=== PATIENT | male | born 1965 | race Caucasian/White ===

== ENCOUNTER 2017-06-10 12:08 | Inpatient (IN) | payer SELFPAY ==
[~2017-06-10] VITALS: Ht 180.3 cm; Wt 72.6 kg
--- NOTE | 2017-06-10 12:08 | NUR ---
Patient LYNNAislinn CINDY, triaged by RN. Waiting for an available bed.
--- NOTE | 2017-06-10 12:20 | NUR ---
Patient transferred to bed 3 for further care. RN evaluating patient at bedside.
[2017-06-10 12:24] VITALS: BP 110/78
--- NOTE | 2017-06-10 12:32 | NUR ---
Security at bedside.
--- NOTE | 2017-06-10 12:41 | NUR ---
Dr. Woods evaluating patient at bedside.
--- NOTE | 2017-06-10 13:24 | NUR ---
Lunch served, assisted with setup. Safety precautions enforced, close observation enforced.
[2017-06-10 13:34] LABS: ANION GAP 15.4 (8-16); CARBON DIOXIDE 24.6 mmol/L (21-32); CHLORIDE 107 mmol/L (98-107); CREATININE 0.7 mg/dL (0.7-1.3); GFR ARICAN-AMERICAN 154 mL/min (>90); GLUCOSE 94 mg/dL (74-106); SODIUM SERUM 144 mmol/L (136-145); UREA NITROGEN, BLOOD 12 mg/dL (7-18)
[2017-06-10 13:35] LABS: BASOPHILS # (AUTO) 0.4 K/uL (0.00-0.22); BASOPHILS % (AUTO) 3.9 % (0.0-2.0); EOSINOPHILS # (AUTO) 0.2 K/uL (0-0.4); HEMATOCRIT 44.5 % (36-52); HEMOGLOBIN 14.7 g/dL (12.0-18.0); LYMPHOCYTES # (AUTO) 1.9 K/uL (2.0-11.5); LYMPHOCYTES % (AUTO) 17.1 % (20.5-51.1); MEAN CORPUSCULAR HEMOGLOBIN 30 pg (27-31); MEAN CORPUSCULAR HGB CONC 33 g/dL (33-37); MEAN CORPUSCULAR VOLUME 90 fL (80-94); MONOCYTES # (AUTO) 0.6 K/uL (0.8-1.0); MONOCYTES % (AUTO) 5.3 % (1.7-9.3); NEUTROPHILS # (AUTO) 7.8 K/uL (1.8-7.7); NEUTROPHILS % (AUTO) 71.7 % (42.2-75.2); PLATELET COUNT (AUTO) 289 K/uL (140-450); RED BLOOD CELL COUNT(AUTO) 4.97 MIL/uL (4.20-6.10); RED CELL DISTRIBUTION WIDTH 12.7 % (11.6-13.7); WHITE BLOOD COUNT (AUTO) 10.9 K/uL (4.8-10.8)
[2017-06-10 13:42] LABS: ACETAMINOPHEN < 0.5 ug/ml (10-30); ALBUMIN 3.7 g/dL (3.4-5.0); ASPARTATE AMINOTRANSFERASE 30 U/L (15-37); SALICYLATE < 2.8 mg/dL (2.8-20.0); TOTAL BILIRUBIN 2.3 mg/dL (0.0-1.0)
[2017-06-10 14:02] LABS: APPEARANCE,URINE HAZY (CLEAR); BILIRUBIN,URINE 2+ (NEGATIVE); BLOOD, URINE NEGATIVE (NEGATIVE); COLOR,URINE BROWN (YELLOW); LEUKOCYTE ESTERASE ,URINE NEGATIVE (NEGATIVE); NITRITE, URINE NEGATIVE (NEGATIVE); PH,URINE 5.5 (5.0-9.0); UGLUCOSE NEGATIVE (NEGATIVE)
[2017-06-10 14:11] LABS: RBC,URINE 0-5 (RARE) /HPF (0-5); WBC,URINE 6-15 (FEW) /HPF (0-5)
[2017-06-10 14:18] LABS: BARBITURATE, URINE NEG. ng/ml (NEG <=200); BENZODIAZEPINE, URINE NEG. ng/mL (NEG <=200); CANNABINOID, URINE NEG. ng/mL (NEG <=50); COCAINE, URINE NEG. ng/mL (NEG <=300); OPIATE, URINE NEG. ng/mL (NEG <=2000); PHENCYCLIDINE SCREEN,URINE NEG. ng/mL (NEG <=25)
[2017-06-10] MEDS ORDERED: POTASSIUM CHLORIDE 20% 40 MEQ/15 ML UDC PO ONE (15:55)
--- NOTE | 2017-06-10 17:10 | NUR ---
Patient cleared medically, mental health placement initiated.
[2017-06-10] MEDS ORDERED: ACETAMINOPHEN 325 MG TAB PO PRN (17:45)
[2017-06-10] MEDS ORDERED: ONDANSETRON 4 MG/2 ML VIAL IM/IVP PRN (17:45)
[2017-06-10] MEDS ORDERED: HYDROcodone/APAP 7.5/325 MG 1 TAB PO PRN (17:45)
[2017-06-10] MEDS ORDERED: DOCUSATE SODIUM 100 MG GELCAP PO PRN (17:45)
[2017-06-10] MEDS ORDERED: MORPHINE SULFATE 2 MG/ML SYR IVP PRN (17:45)
--- NOTE | 2017-06-10 18:03 | NUR ---
Notified Dr. Briscoe's group of requested psych consult.
--- NOTE | 2017-06-10 18:23 | NUR ---
Patient resting in gurney, maintained on safety precautions. Patient awaiting disposition and placement.
[2017-06-10 18:40] LABS: PROTHROMBIN TIME 10.2 secs (10.8-13.4)
[2017-06-10 18:48] LABS: CHOL/HDL RATIO 3.7 (1-4.5); FREE T4 (FREE THYROXINE) 0.99 ng/dL (0.76-1.46); PHOSPHORUS 3.4 mg/dL (2.5-4.9); THYROID STIMULATING HORMONE 1.73 uIU/mL (0.34-3.74)
--- NOTE | 2017-06-10 18:55 | NUR ---
Dispo and medical decision making, inpatient admission for further management. Patient care report given to RAO Pederson. Continuity of care endorsed accordingly.
--- NOTE | 2017-06-10 19:00 | NUR ---
RECEIVED PATIENT FROM ER PATIENT IS AAOX4, SKIN INTACT, IV NOTED ON THE R AC, DENIES PAIN. PATIENT SHOWS NO S/S OF ACUTE DISTRESS ON ROOM AIR. PATIENT IS ON A 5150 HOLD AND PROTOCOLS ARE IN PLACE. 1:1 SITTER AT BEDSIDE. V/S ARE WNL AND CHARTED. WILL ENDORSE PATIENT IN STABLE CONDITION TO NIGHT NURSE.
[2017-06-10] MEDS ORDERED: QUEtiapine FUMARATE 25 MG TAB PO SCH (19:15)
--- NOTE | 2017-06-10 19:25 | NUR ---
GAVE REPORT TO NIGHT NURSE. PATIENT ENDORSED IN STABLE CONDITION.
--- NOTE | 2017-06-10 19:27 | NUR ---
RECEIVED HANDOFF REPORT FROM AM RN/ PATIENT A&OX4. IV SITE PATENT AND INTACT. PATIENT DENIES PAIN. PATIENT STATES THOUGHTS OF HURTING SELF BUT REFUSES TO DISCLOSE HIS PLAN. PATIENT IS 5150, SAFETY MEASURES ENSURED. WILL CONTINUE TO MONITOR.
[2017-06-10 19:30] VITALS: BP 113/73
[2017-06-10] MEDS: NACL 0.9% 1,000 ML IV SCH (20:18)
--- NOTE | 2017-06-10 22:00 | NUR ---
PATIENT SLEEPING. NO SIGNS OR SYMPTOMS OF ACUTE DISTRESS. PATIENT WITH 1:1 SITTER. WILL CONTINUE TO MONITOR.
--- NOTE | 2017-06-11 00:49 | NUR ---
PATIENT SLEEPING. PATIENT WITH 1:1 SITTER. SAFETY MEASURES ENSURED. WILL CONTINUE TO MONITOR.
--- NOTE | 2017-06-11 02:45 | NUR ---
PATIENT SLEEPING. PATIENT HAS 1:1 SITTER. NO SIGNS AND SYMPTOMS OF ACUTE DISTRESS NOTED. SAFETY MEASURES ENSURED. WILL CONTINUE TO MONITOR,
[2017-06-11] MEDS: NACL 0.9% 1,000 ML IV SCH ×2 (03:44→06:51)
[2017-06-11 04:00] VITALS: BP 113/69
--- NOTE | 2017-06-11 05:30 | NUR ---
PATIENT SLEEPING. NO SIGNS AND SYMPTOMS OF ACUTE DISTRESS. 1:1 SITTER. SAFETY MEASURES ENSURED. WILL CONTINUE TO MONITOR.
--- NOTE | 2017-06-11 07:10 | NUR ---
ASSUMED CONTINUITY OF CARE. NO SIGNS AND SYMPTOMS OF ACUTE DISTRESS NOTED. INITIAL ASSESSMENT DONE. PT. NOT VOICING TO HARM HIMSELF. KEEP COMFORTABLE ON BED. KEEP ENVIRONMENT SAFE. EXPLAINED DIAGNOSIS, PLAN OF CARE, PAIN MANAGEMENT TEACHING, USE OF CALL LIGHT/BED/TV/BATHROOM. VERBALIZED UNDERSTANDING. CALL LIGHT WITHIN REACH. CLOSELY MONITORED BY A SITTER 1:1 FABI MERRILL.
--- NOTE | 2017-06-11 07:10 | NUR ---
ENDORSED PLAN OF CARE TO AM RN. PATIENT STABLE. SAFETY MEASURES ENSURED.
[2017-06-11 08:00] VITALS: BP 109/72
--- NOTE | 2017-06-11 08:00 | NUR ---
Patient's Plan of Care was discussed and reviewed with DEPENDENCY COUNSELOR: REED GONZALES
[2017-06-11] MEDS ORDERED: QUEtiapine FUMARATE 25 MG TAB PO SCH (09:00)
--- NOTE | 2017-06-11 09:40 | NUR ---
PATIENT HAS BEEN SCREENED AND CATEGORIZED LOW NUTRITION RISK. PATIENT WILL BE SEEN WITHIN 7 DAYS OF ADMISSION. 06/17/17 SAMIRA RODRÍGUEZ MBA, RD
--- NOTE | 2017-06-11 11:00 | NUR ---
INFORMED DR. ROCKWELL THAT PT. REFUSED US GALLBLADDER. ALSO INFORMED CHARGE NURSE KELL MULLINS -RAO.
[2017-06-11 12:00] VITALS: BP 127/62
[2017-06-11] MEDS ORDERED: POTASSIUM CHLORIDE 10 MEQ TABER PO SCH ×3 (14:00→17:00)
--- NOTE | 2017-06-11 14:25 | NUR ---
DR. OLIVAS CAME, CHECKED PT. CHART AND SEEN PT.. PER DR. OLIVAS PT. NO LONGER NEED A SITTER 1:1. INFORMED CHARGE NURSE KELL MULLINS -RAO.
--- NOTE | 2017-06-11 15:15 | NUR ---
DR. ROCKWELL CAME AND SPOKE TO PT. REGARDING PT. D/C.
[2017-06-11] MEDS ORDERED: QUET25TA46 PO (15:26)
[2017-06-11 16:00] VITALS: BP 117/71
--- NOTE | 2017-06-11 17:00 | NUR ---
EXPLAINED ABOUT MD D/C ORDER, D/C INSTRUCTIONS AND TEACHING, MD FOLLOW-UP, DISEASE MANAGEMENT TEACHING, HOMELESS PATIENT WAIVER FORM, HOMELESS/COMMUNITY RESOURCES, COUNSELLING/MENTAL HEALTH/PSYCHIATRIC PROGRAMS, MD D/C PRESCRIPTION LIST EDUCATION AND MD ARRANGED TO [facility], DIET, SUICIDAL PREVENTION EDUCATION. VERBALIZED UNDERSTANDING.
--- NOTE | 2017-06-11 18:20 | NUR ---
D/C VIA WHEELCHAIR WITH ASSISTANCE FROM SHAJI MERRILL. AWAKE, ALERT, AND ORIENTED X4. NO SUICIDAL THOUGHTS NOTED. SPEECH CLEAR. NO C/O PAIN. NO SOB, NOTED. IN STABLE CONDITION. BUS PASS PROVIDED BY STADIUM MANAGER -RAMILA. INFORMED CHARGE NURSE KELL LANE.
[2017-06-13 08:51] LABS: T4 (THYROXINE) 5.7 ug/dL (4.5 - 12.0)
== END 2017-06-11 18:20 | disposition home or self-care (01) | DRG 640 ==
LOC: MED 12:08 → MTU 17:51
PROVIDERS: ADMIT Family Medicine; ATTEND Family Medicine
DX: E87.6 Hypokalemia (principal); N17.0 Acute kidney failure with tubular necrosis; R45.851 Suicidal ideations; F33.3 Major depressive disorder, recurrent, severe with psychotic symptoms; E78.5 Hyperlipidemia, unspecified; E80.6 Other disorders of bilirubin metabolism; Z59.0 Homelessness; Z87.891 Personal history of nicotine dependence
CPT/HCPCS: 36415; 80053; 80305; 81001; 82550; 82553; 83036; 83735; 83880; 84100; 84436; 84439; 84443; 84479; 84484; 85025; 85610; 85730; 87081; 87086; 93005; 99285; G0480; G0482; J7030